=== PATIENT | female | born 1995 | race Caucasian/White ===

== ENCOUNTER 2022-10-04 15:40 | Emergency (ER) | payer BC ==
[2022-10-04] MEDS: Take Home: Cephalexin 250 MG Cap, 4 Cap Pack PO ONE (16:17)
[2022-10-04] MEDS: Hydrocortisone 2.5% Crm 30 GM Tube TOP SCH (16:17)
== END 2022-10-04 16:23 | disposition home or self-care (01) ==
LOC: CC.ED 15:40
DX: S80.862A Insect bite (nonvenomous), left lower leg, initial encounter (principal); Z88.1 Allergy status to other antibiotic agents; Z88.2 Allergy status to sulfonamides; Z79.899 Other long term (current) drug therapy; W57.XXXA Bitten or stung by nonvenomous insect and other nonvenomous arthropods, initial encounter
CPT/HCPCS: 99281; 99283; A9270-GY